=== PATIENT | male | born 1960 ===

== ENCOUNTER → 2024-10-12 | Outpatient (CLI) | payer OTHER ==
[2024-10-12 14:00] LABS: Thyroid Stimulating Hormone >100.000 uIU/mL (0.360-4.800)
== END ==
LOC: LAB SHORT 13:34 → LAB 13:34
PROVIDERS: Physician Assistant
DX: Z01.89 Encounter for other specified special examinations (principal); Z90.89 Acquired absence of other organs; Z98.890 Other specified postprocedural states
CPT/HCPCS: 84439; 84443; 84481

== ENCOUNTER → 2025-03-01 | Outpatient (CLI) | payer OTHER ==
[2025-03-01 19:28] LABS: Thyroid Stimulating Hormone 0.079 uIU/mL (0.360-4.800)
== END | disposition home or self-care (01) ==
LOC: LAB 11:00 → LAB SHORT 11:00
PROVIDERS: Nurse Practitioner Family
DX: E89.0 Postprocedural hypothyroidism (principal)
CPT/HCPCS: 84439; 84443